=== PATIENT | female | born 1945 | race Caucasian/White ===

== ENCOUNTER 2018-02-27 07:00 | Emergency (ER) | payer MEDICARE, OTHER ==
[2018-02-27 07:12] VITALS: BP 167/100
[2018-02-27] MEDS ORDERED: Ondansetron 4 MG/2 ML SDV IVPUSH ONE (07:46)
[2018-02-27] MEDS ORDERED: Sodium Chloride 0.9% 500 ML IV ONE (07:46)
[2018-02-27] MEDS ORDERED: HYDROmorphone 0.5 MG/0.5 ML SYRINGE IVPUSH ONE (07:46)
[2018-02-27] MEDS ORDERED: Sodium Chloride 0.9% 10 ML Syringe FLUSH PRN (07:47)
--- NOTE | 2018-02-27 08:16 | EDM.PDOC ---
ED HPI GENERAL MEDICAL PROBLEM - General Chief Complaint: Back Pain or Injury Stated Complaint: BACK PAIN Time Seen by Provider: 02/27/18 07:34 Source of Information: Reports: Patient, RN Notes Reviewed - History of Present Illness INITIAL COMMENTS - FREE TEXT/NARRATIVE: 72-year-old female comes in with left low back pain. This started Yesterday, has been very bothersome through the night and continues this morning. the pain starts in her left low back but does radiate at times to the left lower abdomen and groin. She has not been able to find a comfortable position. She states she is try to take pain medicine previously prescribed for her back but has been vomiting that up. No fever or chills. No voiding symptoms. She is not aware of recent fall or injury. Has had right-sided sciatica and felt that now she is probably having left-sided sciatica but the pain as mentioned has been radiating to the groin and has not been radiating down into the left leg. Treatments QUOTATION CHECKER: Reports: Other (see below) Other Treatments QUOTATION CHECKER: tramadol Left Hip Pain Score (Numeric/FACES): 8 - Related Data Allergies Allergy/AdvReac Type Severity Reaction Status Date / Time Sulfa (Sulfonamide AdvReac Nausea and Verified 02/27/18 07:12 Antibiotics) Vomiting Home Meds: Home Meds Atenolol 50 mg PO DAILY 05/24/15 [History] Clopidogrel [Plavix] 75 mg PO DAILY 05/24/15 [History] Inulin/Sorbitol [Fiber Choice] 4 tab PO DAILY 05/24/15 [History] Pravastatin [Pravachol] 20 mg PO DAILY 05/24/15 [History] Valsartan/Hydrochlorothiazide [Valsartan-Hctz 160-25 mg Tab] 25 - 160 mg PO DAILY 05/24/15 [History] Multivitamin [Multivitamins] 1 tab PO DAILY 06/26/15 [History] Ondansetron [Zofran ODT] 4 mg PO Q8HR PRN #10 tab.dis 02/27/18 [Rx] predniSONE [Prednisone] 20 mg PO DAILY #5 tab.ds.pk 02/27/18 [Rx] Past Medical History Cardiovascular History: Reports: Hypertension Gastrointestinal History: Reports: GERD 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 Had surgery to prepare her mouth Cardiovascular Surgical History: Reports: Other (See Below) Other Cardiovascular Surgeries/Procedures: carotid sx Musculoskeletal Surgical History: Reports: Knee Replacement Social & Family History - Family History Family Medical History: Noncontributory - Tobacco Use Smoking Status *Q: Former Smoker Packs/Tins Daily: 1 Used Tobacco, but Quit: Yes Month/Year Tobacco Last Used: 2013 - Caffeine Use Caffeine Use: Reports: Coffee - Recreational Drug Use Recreational Drug Use: No ED ROS GENERAL - Review of Systems Review Of Systems: See Below Constitutional: Denies: Fever, Chills, Diaphoresis HEENT: Reports: No Symptoms Respiratory: Denies: Shortness of Breath, Pleuritic Chest Pain, Cough Cardiovascular: Denies: Chest Pain GI/Abdominal: Reports: Abdominal Pain, Constipation, Nausea : Reports: No Symptoms, Frequency Musculoskeletal: Reports: Back Pain. Denies: Leg Pain Skin: Reports: No Symptoms. Denies: Rash Neurological: Denies: Numbness, Tingling ED EXAM,LOWER BACK PAIN/INJURY - Physical Exam Exam: See Below General Appearance: Alert, Moderate Distress Throat/Mouth: Normal Inspection, Normal Oropharynx Head: Atraumatic. No: Facial Swelling Neck: Supple, Full Range of Motion Respiratory/Chest: No Respiratory Distress, Lungs Clear, Normal Breath Sounds Cardiovascular: Regular Rate, Rhythm, Tachycardia GI/Abdominal: Soft, Non-Tender. No: Guarding Back Exam: No: CVA Tenderness (L), CVA Tenderness (R) Extremities: Normal Inspection, Normal Range of Motion. No: Pedal Edema, Leg Pain Neurological: Alert, No Motor/Sensory Deficits Skin Exam: Warm, Dry, Normal Color, No Rash Course - Vital Signs Last Recorded V/S: Last Vital Signs Temp 97.0 F 02/27/18 07:07 Pulse 105 H 02/27/18 07:07 Resp 18 02/27/18 07:07 BP 167/100 H 02/27/18 07:07 Pulse Ox 96 02/27/18 07:07 - Orders/Labs/Meds Orders: Active Orders 24 hr Category Date Time Status Peripheral IV Care [RC] . DIRECTED Care 02/27/18 07:47 Active Peripheral IV Insertion Adult [OM.PC] Stat Oth 02/27/18 07:46 Ordered Labs: Laboratory Tests 02/27/18 02/27/18 Range/Units 08:02 08:02 WBC 10.85 H (3.98-10.04) K/mm3 RBC 4.85 (3.98-5.22) M/mm3 Hgb 14.5 (11.2-15.7) gm/L Hct 42.3 (34.1-44.9) % MCV 87.2 (79.4-94.8) fl MCH 29.9 (25.6-32.2) pg MCHC 34.3 (32.2-35.5) g/dl RDW Std Deviation 47.2 H (36.4-46.3) fL Plt Count 202 (182-369) K/mm3 MPV 9.0 L (9.4-12.3) fl Neut % (Auto) 91.0 H (34.0-71.1) % Lymph % (Auto) 4.7 L (19.3-51.7) % Mckinley % (Auto) 3.6 L (4.7-12.5) % Eos % (Auto) 0 L (0.7-5.8) Baso % (Auto) 0.1 (0.1-1.2) % Neut # (Auto) 9.88 H (1.56-6.13) K/mm3 Lymph # (Auto) 0.51 L (1.18-3.74) K/mm3 Mckinley # (Auto) 0.39 H (0.24-0.36) K/mm3 Eos # (Auto) 0.00 L (0.04-0.36) K/mm3 Baso # (Auto) 0.01 (0.01-0.08) K/mm3 Manual Slide Review Normal smear Sodium 134 L (136-145) mEq/L Potassium 3.6 (3.5-5.1) mEq/L Chloride 97 L (98-107) mEq/L Carbon Dioxide 26 (21-32) mEq/L Anion Gap 14.6 (5-15) BUN 19 H (7-18) mg/dL Creatinine 1.1 H (0.55-1.02) mg/dL Est Cr Clr Drug Dosing 34.37 mL/min Estimated GFR (MDRD) 49 (>60) mL/min BUN/Creatinine Ratio 17.3 (14-18) Glucose 145 H (83-115) mg/dL Calcium 10.0 (8.5-10.1) mg/dL Total Bilirubin 1.6 H (0.2-1.0) mg/dL AST 21 (15-37) U/L ALT 14 (14-59) U/L Alkaline Phosphatase 73 (46-116) U/L Total Protein 8.4 H (6.4-8.2) g/dl Albumin 4.1 (3.4-5.0) g/dl Globulin 4.3 gm/dL Albumin/Globulin Ratio 1.0 (1-2) Meds: Medications Discontinued Medications Generic Name Dose Route Start Last Admin Trade Name Freq PRN Reason Stop Dose Admin Hydromorphone HCl 0.5 mg 02/27/18 07:46 02/27/18 08:09 Dilaudid IVPUSH 02/27/18 07:47 0.5 mg ONETIME ONE Administration Sodium Chloride 500 mls @ 999 mls/hr 02/27/18 07:46 02/27/18 08:06 Normal Saline IV 02/27/18 08:16 999 mls/hr .BOLUS ONE Administration Ondansetron HCl 4 mg 02/27/18 07:46 02/27/18 08:06 Zofran IVPUSH 02/27/18 07:47 4 mg ONETIME ONE Administration Sodium Chloride 10 ml 02/27/18 07:47 02/27/18 08:10 Saline Flush FLUSH 10 ml ASDIRECTED PRN Administration Keep Vein Open - Re-Assessments/Exams Free Text/Narrative Re-Assessment/Exam: 02/27/18 09:02 Labs are relatively normal, renal CT was negative for kidney stone. Therefore this likely is a sciatica. She has obtained good relief from Dilaudid 0.5 mg IV. We'll start her on a course of low-dose prednisone. Also Zofran if needed for further nausea or vomiting. Departure - Departure Time of Disposition: 09:02 Disposition: Home, Self-Care 01 Condition: Fair Clinical Impression: Back pain with left-sided sciatica - Discharge Information Prescriptions: Ondansetron [Zofran ODT] 4 mg PO Q8HR PRN #10 tab.dis PRN Reason: Nausea/Vomiting predniSONE [Prednisone] 20 mg PO DAILY #5 tab.ds.pk Instructions: Back Pain, Adult, Sciatica Referrals: Isabelle Conn TRANSFER WORKER [Primary Care Provider] - Forms: ED Department Discharge Additional Instructions: Rest back, avoid heavy lifting, alternate heat and ice packs as needed, consider another round of physical therapy to let them try help this get better more quickly, continue current pain medication as needed, Zofran if needed for further nausea vomiting, prednisone 20 mg daily for the next 5 days. Follow-up with your regular medical provider if not getting much better within 5-7 days as expected. - My Orders Last 24 Hours: My Active Orders 02/27/18 07:46 Peripheral IV Insertion Adult [OM.PC] Stat 02/27/18 07:47 Peripheral IV Care [RC] . DIRECTED - Assessment/Plan Last 24 Hours: My Active Orders 02/27/18 07:46 Peripheral IV Insertion Adult [OM.PC] Stat 02/27/18 07:47 Peripheral IV Care [RC] . DIRECTED
--- NOTE | 2018-02-27 08:44 | CT ---
CT abdomen and pelvis Technique: Multiple axial sections were obtained from above the dome of the diaphragm inferiorly through the pubic symphysis. Intravenous and oral contrast has not been utilized. Study performed as a ureteral stone protocol. Findings: Ureters show no dilatation. No abnormal calcification is seen along the course of the ureters. Left kidney shows slight atrophy as compared to the right kidney. Kidneys show no abnormal calcifications. Visualized lung bases show nothing acute. Coronary artery calcification is seen. Noncontrast appearance of the liver appears within normal limits. Spleen appears within normal limits. Adrenal glands show no nodule. Pancreas is within normal limits. Aorta and iliac vessels shows no aneurysm. Appendix is seen which is normal in size. No retroperitoneal adenopathy or mesenteric abnormalities are seen. No pelvic mass or adenopathy is seen. Fatty area is noted within the uterus measuring 1.7 cm which is felt to be incidental. Mild degenerative change scattered within the spine. Impression: 1. No renal calculi, ureteral dilatation or ureteral stone is seen. Slightly atrophic left kidney as compared to the right side. 2. Other incidental findings as noted above. Nothing acute is appreciated. Diagnostic code #2
== END 2018-02-27 09:26 | disposition home or self-care (01) ==
LOC: JD.ED 07:00
DX: M54.42 Lumbago with sciatica, left side (principal); I10 Essential (primary) hypertension; Z87.891 Personal history of nicotine dependence; Z88.2 Allergy status to sulfonamides; Z79.899 Other long term (current) drug therapy
CPT/HCPCS: 36415; 74176; 80053; 85025; 96361; 96374; 96375; 99284; J1170; J2405; J7040; J7050

== ENCOUNTER 2024-12-28 17:25 | Emergency (ER) | payer MEDICARE, OTHER ==
[2024-12-28 18:34] LABS: BASOPHILS ABSOLUTE AUTO 0.1 K/mm3 (0.0-0.2); BASOPHILS PERCENT AUTO 0.9 % (0.0-1.0); EOSINOPHILS ABSOLUTE AUTO 0.2 K/mm3 (0.0-0.4); EOSINOPHILS PERCENT AUTO 2.3 % (0.0-6.0); IMMATURE GRAN ABSOLUTE AUTO 0.03 K/mm3 (0.00-0.05); IMMATURE GRAN PERCENT AUTO 0.4 % (0.0-0.4); LYMPHOCYTES ABSOLUTE AUTO 1.2 K/mm3 (1.0-4.8); LYMPHOCYTES PERCENT AUTO 17.2 % (24.0-44.0); MEAN PLATELET VOLUME 9.4 fl (9.4-12.3); MONOCYTES ABSOLUTE AUTO 0.5 K/mm3 (0.0-0.8); MONOCYTES PERCENT AUTO 7.4 % (0.0-8.0); NEUTROPHILS ABSOLUTE AUTO 4.9 K/mm3 (1.8-7.7); NEUTROPHILS PERCENT AUTO 71.8 % (41.0-71.0); NRBC ABSOLUTE 0.00 (0.00-0.02); NRBC PERCENT 0.0 % (0.0-0.2); PLATELET COUNT,PLT 143 K/mm3 (150-400); RED BLOOD CELL COUNT 4.77 M/mm3 (4.10-5.30); WHITE BLOOD CELL COUNT,WBC 6.85 K/mm3 (3.9-11.3)
[2024-12-28 18:55] LABS: A/G RATIO 1.2 (1-2); ALANINE AMINOTRANSFERASE,ALT 12.0 U/L (14-59); ASPARTATE AMNIOTRANSFERASE,AST 11.0 U/L (15-37); BILIRUBIN TOTAL 2.0 mg/dL (0.2-1.0); BLOOD UREA NITROGEN,BUN 18.0 mg/dL (7-18); CARBON DIOXIDE,CO2 27.0 mEq/L (21-32); CHLORIDE,CL 109.0 mEq/L (98-107); CREATININE 0.9 mg/dL (0.55-1.02); EST CRCL DRUG DOSING (CG) 39.43 mL/min; ESTIMATED GFR 65.0 mL/min (>60); GLUCOSE RANDOM 90.0 mg/dL (70-99); POTASSIUM,K 3.7 mEq/L (3.5-5.1); PROTEIN TOTAL,TP 7.4 g/dl (6.4-8.2); SODIUM,NA 146.0 mEq/L (136-145); TROPONIN I HIGH SENSITIVITY 20.0 pg/mL (<=51)
[2024-12-28 19:19] VITALS: BP 174/75; PULSE 78
== END 2024-12-28 19:15 | disposition home or self-care (01) ==
LOC: JD.ED 17:25
DX: R53.83 Other fatigue (principal); I10 Essential (primary) hypertension; K21.9 Gastro-esophageal reflux disease without esophagitis; Z88.2 Allergy status to sulfonamides; Z79.02 Long term (current) use of antithrombotics/antiplatelets; Z79.899 Other long term (current) drug therapy; Z79.4 Long term (current) use of insulin
CPT/HCPCS: 36415; 80053; 83735; 84484; 85025; 93005; 99283